=== PATIENT | male | born 1970 | race Caucasian/White ===

== ENCOUNTER 2021-08-01 17:35 | Emergency (ER) | payer SELFPAY ==
[2021-08-01 18:16] LABS: Bilirubin,Urine NEG (Negative); Blood,Urine LG (Negative); Color,Urine Yellow (Yellow); Urobilinogen,Urine < 2.0 mg/dL (<2.0)
[2021-08-01 18:23] LABS: Calcium Oxalate Crystals,Urine FEW; Mucus,Urine FEW /HPF
[2021-08-01 18:24] LABS: RBC,Urine > 182.0 /HPF (0.0-6.0)
[2021-08-01] MEDS ORDERED: KETOROLAC 30 MG/1 ML INJ IV ONE (18:27)
[2021-08-01] MEDS ORDERED: ONDANSETRON 4 MG/2 ML INJ IV ONE ×2 (18:27→21:58)
[2021-08-01] MEDS ORDERED: MORPHINE 4 MG/1 ML INJ IV ONE ×2 (18:27→21:58)
[2021-08-01] MEDS ORDERED: SODIUM CHLORIDE 0.9% 1000 ML 1,000 ML IV ONE (18:27)
[2021-08-01 18:45] LABS: Hematocrit 46.7 % (35.5-45.6); Hemoglobin 16.5 gm/dl (11.8-15.2); Mean Corpuscular HGB Conc 35 % (32-34); Mean Corpuscular Volume 92 fl (84-94); Platelet Count 206 K/mm3 (140-440); Red Blood Count 5.08 M/mm3 (3.65-5.03); Red Cell Distribution Width 12.9 % (13.2-15.2)
[2021-08-01 19:08] LABS: Alanine Aminotransferase 39 units/L (7-56); Albumin 4.9 g/dL (3.9-5); BUN/Creatinine Ratio 16; Blood Urea Nitrogen 14 mg/dL (9-20); Calcium 9.7 mg/dL (8.4-10.2); Hemolysis Index 29
--- NOTE | 2021-08-01 21:21 | Emergency Department Report ---
ED Abdominal Pain HPI - General Chief Complaint: Abdominal Pain Stated Complaint: MAYBE KIDNEY STONES Source: patient Mode of arrival: Ambulatory Limitations: No Limitations - History of Present Illness Initial Comments: Patient is a 51-year-old Vietnamese male with history of kidney stones who presents to the ED with complaint of acute onset persistent right flank pain brett t radiates to the right lower quadrant area with intractable nausea and vomiting for the last 2 hours. Patient states that the pain is similar to what he experienced on his left flank in the past whenever he had kidney stones. Patient denies dizziness, syncope, fever, chills, diarrhea, dysuria, urinary frequency and urgency, testicular pain, traumatic injury, fall, heavy lifting or hematuria. MD Complaint: abdominal pain (Right flank and right lower quadrant pain), flank pain (Right flank pain), other (Nausea and vomiting) -: Sudden, hour(s) (2) Location: RLQ, R flank Radiation: RLQ, R flank Migration to: no migration Severity: severe Severity scale (0 -10): 10 Quality: stabbing, sharp Consistency: constant Improves With: nothing Worsens With: nothing Associated Symptoms: nausea, vomiting. denies: diarrhea, fever, chills, constipation, dysuria, hematemesis, hematochezia, melena, hematuria, anorexia, syncope - Related Data Previous Rx's Medication Instructions Recorded Last Taken Type Ketorolac [Toradol] 10 mg PO Q8H PRN #20 tab 08/01/21 Unknown Rx Ondansetron [Zofran Odt] 4 mg PO Q8HR PRN #20 tab.rapdis 08/01/21 Unknown Rx Tamsulosin [Flomax] 0.4 mg PO QDAY #10 cap 08/01/21 Unknown Rx oxyCODONE /ACETAMINOPHEN [Percocet 1 tab PO Q6HR PRN #12 tablet 08/01/21 Unknown Rx 5/325] Allergies Allergy/AdvReac Type Severity Reaction Status Date / Time No Known Allergies Allergy Verified 08/01/21 17:49 ED Review of Systems ROS: Stated complaint: MAYBE KIDNEY STONES Other details as noted in HPI Constitutional: denies: chills, fever Eyes: denies: eye pain, eye discharge, vision change ENT: denies: ear pain, throat pain Respiratory: denies: cough, shortness of breath, wheezing Cardiovascular: denies: chest pain, palpitations Endocrine: no symptoms reported Gastrointestinal: abdominal pain (Right flank and right lower quadrant pain), nausea, vomiting. denies: diarrhea Genitourinary: denies: urgency, dysuria Musculoskeletal: back pain (Low back pain). denies: joint swelling, arthralgia Skin: denies: rash, lesions Neurological: denies: headache, weakness, paresthesias Psychiatric: denies: anxiety, depression Hematological/Lymphatic: denies: easy bleeding, easy bruising ED Past Medical Hx - Past Medical History Previous Medical History?: Yes Hx Kidney Stones: Yes (Kidney stones) - Medications Home Medications: Home Medications Medication Instructions Recorded Confirmed Last Taken Type Ketorolac [Toradol] 10 mg PO Q8H PRN #20 tab 08/01/21 Unknown Rx Ondansetron [Zofran Odt] 4 mg PO Q8HR PRN #20 tab.rapdis 08/01/21 Unknown Rx Tamsulosin [Flomax] 0.4 mg PO QDAY #10 cap 08/01/21 Unknown Rx oxyCODONE /ACETAMINOPHEN [Percocet 1 tab PO Q6HR PRN #12 tablet 08/01/21 Unknown Rx 5/325] ED Physical Exam - General Limitations: No Limitations General appearance: alert, in no apparent distress - Head Head exam: Present: atraumatic, normocephalic, normal inspection - Eye Eye exam: Present: normal appearance, PERRL, EOMI Pupils: Present: normal accommodation - ENT ENT exam: Present: normal exam, normal orophraynx, mucous membranes moist, TM's normal bilaterally, normal external ear exam - Neck Neck exam: Present: normal inspection, full ROM - Respiratory Respiratory exam: Present: normal lung sounds bilaterally. Absent: respiratory distress, wheezes, rales, rhonchi, stridor, chest wall tenderness, accessory muscle use, decreased breath sounds, prolonged expiratory - Cardiovascular Cardiovascular Exam: Present: regular rate, normal rhythm, normal heart sounds. Absent: systolic murmur, diastolic murmur, rubs, gallop - GI/Abdominal GI/Abdominal exam: Present: soft, tenderness (Palpable right flank and right lower quadrant tenderness), normal bowel sounds. Absent: guarding, rebound, hyperactive bowel sounds, hypoactive bowel sounds, organomegaly, mass - Extremities Exam Extremities exam: Present: normal inspection, full ROM, normal capillary refill. Absent: tenderness - Back Exam Back exam: Present: normal inspection, full ROM. Absent: tenderness, CVA tenderness (R), CVA tenderness (L), muscle spasm, paraspinal tenderness, vertebral tenderness - Neurological Exam Neurological exam: Present: alert, oriented X3, CN II-XII intact, normal gait, reflexes normal - Psychiatric Psychiatric exam: Present: normal affect, normal mood - Skin Skin exam: Present: warm, dry, intact, normal color. Absent: rash ED Course Vital Signs 08/01/21 08/01/21 17:52 19:00 Temperature 97.6 F Pulse Rate 72 Respiratory 18 18 Rate Blood Pressure 175/103 O2 Sat by Pulse 96 Oximetry ED Medical Decision Making - Lab Data Result diagrams: 08/01/21 18:08 08/01/21 18:08 - Radiology Data Radiology results: report reviewed, image reviewed [facility] [address] [id number] Cat Scan Report Signed Patient: JACKI BABB MR#: [id number] : 1970 Acct:[id number] Age/Sex: 51 / M ADM Date: 08/01/21 Loc: ED Attending Dr: Ordering Physician: KARRI ABURTO Date of Service: 08/01/21 Procedure(s): CT abdomen pelvis w con Accession Number(s): [id number] cc: KARRI ABURTO CT ABDOMEN AND PELVIS WITH IV CONTRAST INDICATION: RLQ, Right flank pain. COMPARISON: None available. TECHNIQUE: Axial CT images were obtained through the abdomen and pelvis after 100 mL Omnipaque [address] scans at this location are performed using CT dose reduction for ALARA by means of automated exposure control. FINDINGS -- ABDOMEN: Lung Bases: No acute abnormality. Liver: Normal. Gallbladder: Normal. Bile Ducts: Normal. Pancreas: Normal. Spleen: Normal. Adrenals: Normal. Right Kidney and Proximal Ureter: Moderate right hydroureteronephrosis secondary to an obstructive 5 mm calculus at the right ureterovesical junction.. Left Kidney and Proximal Ureter: Normal. Stomach and Bowel: Slight thickening of the gastric folds within the distal gastric antrum, nonspecific.. Lymph Nodes: No significant adenopathy. Aorta: Mild scattered atherosclerotic disease. IVC: Normal. Additional Findings: None. FINDINGS -- PELVIS: Urinary Bladder and Distal Ureters: Normal. Reproductive Organs: No acute abnormality. Appendix: Normal. Bowel: No acute abnormality. Free Fluid: None. Lymph Nodes: No significant adenopathy. Additional Findings: None. Skeletal System: No acute abnormality. IMPRESSION: Obstructive 5 mm calculus at the right ureterovesical junction causing mild to moderate right hydroureteronephrosis. Signer Name: Darrel Burton MD Signed: 08/01/2021 9:24 PM Workstation Name: [id number] Transcribed By: Dictated By: Darrel Burton MD Electronically Authenticated By: Darrel Burton MD Signed Date/Time: 08/01/212123 DD/ 19 TD/TT: Print - Medical Decision Making This is a 51-year-old Vietnamese male with history of kidney stones who presents to the ED with complaint of acute onset persistent right flank pain that radiates to the right lower quadrant area with intractable nausea and vomiting for the last 2 hours. Patient states that the pain is similar to what he experienced on his left flank in the past whenever he had kidney stones. In the ED, patient is alert and oriented x3 and is not in any distress. Patient however appears to be in significant pain. Patient was treated for pain in the ED and also given antiemetics, normal saline 1 L IV bolus x1. Lab test results were reviewed and are all nonactionable except for mild hypokalemia of 3.4 mmol/L and gross hematuria in urinalysis. The abdomen pelvis CT scan with IV contrast showed obstructive 5 mm calculus at the right ureterovesical junction causing mild to moderate right hydroureteronephrosis. On reevaluation, patient's pain is well controlled medication. Patient was treated in the ED with Flomax 0.4 mg p.o. x1. Patient was discharged home on pain medications and given a referral to the urologist for follow-up in 3 to 5 days. Patient was advised to return to the ED immediately if symptoms get worse. - Differential Diagnosis Kidney stone; appendicitis; UTI; colitis; Critical care attestation.: If time is entered above; I have spent that time in minutes in the direct care of this critically ill patient, excluding procedure time. ED Disposition Clinical Impression: Acute abdominal pain in right flank, Nausea and vomiting in adult patient, Calculus of right kidney Disposition: HOME / SELF CARE / HOMELESS Is pt being admited?: No Does the pt Need Aspirin: No Condition: Stable Instructions: Kidney Stones, [id number], Nausea and Vomiting, Adult, [id number], Flank Pain, Adult, [id number] Additional Instructions: All lab test results were reviewed and are all nonactionable. Abdomen pelvis CT scan with IV contrast showed Prescriptions: Tamsulosin [Flomax] 0.4 mg PO QDAY #10 cap oxyCODONE /ACETAMINOPHEN [Percocet 5/325] 1 tab PO Q6HR PRN #12 tablet PRN Reason: Pain Ketorolac [Toradol] 10 mg PO Q8H PRN #20 tab PRN Reason: Pain , Severe (7-10) Ondansetron [Zofran Odt] 4 mg PO Q8HR PRN #20 tab.rapdis PRN Reason: Nausea Referrals: ROSALES JIMENES MD [Staff Physician] - 3-5 Days Forms: Work/School Release Form(ED) Time of Disposition: 21:58 Print Language: CROATIAN
--- NOTE | 2021-08-01 21:28 | Cat Scan Report ---
CT ABDOMEN AND PELVIS WITH IV CONTRAST INDICATION: RLQ, Right flank pain. COMPARISON: None available. TECHNIQUE: Axial CT images were obtained through the abdomen and pelvis after 100 mL Omnipaque [address] scans at this location are performed using CT dose reduction for ALARA by means of automated e xposure control. FINDINGS -- ABDOMEN: Lung Bases: No acute abnormality. Liver: Normal. Gallbladder: Normal. Bile Ducts: Normal. Pancreas: Normal. Spleen: Normal. Adrenals: Normal. Right Kidney and Proximal Ureter: Moderate right hydroureteronephrosis secondary to an obstructive 5 mm calculus at the right ureterovesical junction.. Left Kidney and Proximal Ureter: Normal. Stomach and Bowel: Slight thickening of the gastric folds within the distal gastric antrum, nonspecif ic.. Lymph Nodes: No significant adenopathy. Aorta: Mild scattered atherosclerotic disease. IVC: Normal. Additional Findings: None. FINDINGS -- PELVIS: Urinary Bladder and Distal Ureters: Normal. Reproductive Organs: No acute abnormality. Appendix: Normal. Bowel: No acute abnormality. Free Fluid: None. Lymph Nodes: No significant adenopathy. Additional Findings: None. Skeletal System: No acute abnormality. IMPRESSION: Obstructive 5 mm calculus at the right ureterovesical junction causing mild to moderate right hydrour eteronephrosis. Signer Name: Darrel Burton MD Signed: 08/01/2021 9:24 PM Workstation Name: [employer]
[2021-08-01] MEDS ORDERED: TAMSULOSIN 0.4 MG CAP PO ONE (21:58)
[2021-08-01 22:35] VITALS: BP 162/87
== END 2021-08-01 22:35 | disposition home or self-care (01) ==
LOC: ED 17:35
DX: R10.9 Unspecified abdominal pain (principal); R11.2 Nausea with vomiting, unspecified; N20.0 Calculus of kidney
CPT/HCPCS: 36415; 74177; 80053; 81001; 83690; 85027; 96361; 96374; 96375; 96376; 99284; J1885; J2270; J2405; J7030; Q9967